=== PATIENT | male | born 1985 | race Caucasian/White ===

== ENCOUNTER → 2024-11-28 | Outpatient (CLI) | payer OTHER, SELFPAY ==
--- NOTE | 2024-11-28 13:11 | RAD_ITS ---
PROCEDURE: LUMBAR SPINE 2 OR 3 VIEWS 11/28/2024 REASON FOR EXAM: LBP TECHNIQUE: 3 view(s) of the lumbar spine COMPARISON: None FINDINGS: Vertebrae: Anterior spondylosis at the L2-L3 level. Discs: Mild disc space narrowing at the L2-L3 level. Alignment: Levoconvex scoliosis. Other: RAD/Lumbar Spine 2 or 3 Views IMPRESSION: Levoconvex scoliosis. Disc space narrowing and spondylosis at the L2-L3 level. Reading Location: [facility]-
== END | disposition home or self-care (01) ==
PROVIDERS: Referring Provider Physician Assistant; Visit Provider Physician Assistant
DX: M54.50 Low back pain, unspecified (principal)
CPT/HCPCS: 72100